=== PATIENT | male | born 1950 | race Hispanic/Latino ===

== ENCOUNTER 2018-09-19 17:20 | Emergency (ER) | payer MEDICARE ==
[~2018-09-19 17:20] MED LIST: CETI10CA5 PO; CLOP75TA14 PO; DUTA.5 PO; LEVO75 PO; METO-391 PO; ROSU10TA PO; TAMS-1 PO
[2018-09-19 17:56] LABS: BASOPHILS % (AUTO) 0.2 % (0.0-5.0); EOSINOPHILS % (AUTO) 0.2 % (0.0-8.0); HEMATOCRIT 48.1 % (42-54); LYMPHOCYTES % (AUTO) 4.9 % (21.0-51.0); MEAN CORPUSCULAR HEMOGLOBIN 29.9 pg (27.0-33.0); MEAN CORPUSCULAR HGB CONC 33.8 g/dL (32.0-36.0); MEAN CORPUSCULAR VOLUME 88.5 fL (79-99); MONOCYTES % (AUTO) 4.4 % (3.0-13.0); NEUTROPHILS % (AUTO) 90.3 % (40.0-77.0); NUCLEATED RED BLOOD CELLS 0.1 % (0.0-0.19); PLATELET COUNT (AUTO) 252 K/uL (130-400); RED BLOOD CELL COUNT(AUTO) 5.44 MIL/uL (4.50-6.20); RED CELL DISTRIBUTION WIDTH 13.5 % (11.0-15.5)
[2018-09-19] MEDS ORDERED: ONDANSETRON HCL 4 MG/2 ML VIAL ONE (18:07)
[2018-09-19] MEDS ORDERED: SODIUM CHLORIDE 0.9% 1000ML 1,000 ML IV ONE (18:07)
[2018-09-19 18:08] LABS: CREATININE 1.1 mg/dL (0.5-1.5); POTASSIUM 3.5 mmol/L (3.5-5.1)
[2018-09-19] MEDS ORDERED: MORPHINE SULFATE 2 MG/ML 1ML SYG ONE (18:08)
[2018-09-19 18:12] LABS: ALBUMIN 3.9 g/dL (3.5-5.0); BILIRUBIN,TOTAL 1.2 mg/dL (0.2-1.0); TOTAL PROTEIN, SERUM 7.4 g/dL (6.0-8.3)
[2018-09-19] MEDS ORDERED: IOHEXOL-350 75 ML VIAL IV ONE (18:40)
[2018-09-19] MEDS ORDERED: LEVOFLOXACIN 500 MG TABLET ONE (20:34)
== END 2018-09-19 20:47 | disposition home or self-care (01) ==
LOC: EDH 17:20
DX: K52.9 Noninfective gastroenteritis and colitis, unspecified (principal); E78.5 Hyperlipidemia, unspecified; Z88.6 Allergy status to analgesic agent; Z95.1 Presence of aortocoronary bypass graft
CPT/HCPCS: 36415; 74177; 80053; 83690; 85025; 93005; 96361; 96374; 99285; J2405; J7030; Q9967

== ENCOUNTER 2019-02-10 05:52 | Day surgery (SDC) | payer MEDICARE ==
[2019-02-08 16:00] VITALS: BP 128/75
[2019-02-08 16:26] LABS: BASOPHILS % (AUTO) 0.5 % (0.0-5.0); EOSINOPHILS % (AUTO) 4.3 % (0.0-8.0); HEMATOCRIT 49.1 % (42-54); LYMPHOCYTES % (AUTO) 21.5 % (21.0-51.0); MEAN CORPUSCULAR HEMOGLOBIN 30.3 pg (27.0-33.0); MEAN CORPUSCULAR HGB CONC 33.9 g/dL (32.0-36.0); MEAN CORPUSCULAR VOLUME 89.3 fL (79-99); MONOCYTES % (AUTO) 9.1 % (3.0-13.0); NEUTROPHILS % (AUTO) 64.6 % (40.0-77.0); PLATELET COUNT (AUTO) 245 K/uL (130-400); RED CELL DISTRIBUTION WIDTH 13.6 % (11.0-15.5); WHITE BLOOD COUNT (AUTO) 7.3 K/uL (4.8-10.8)
[2019-02-08 16:29] LABS: APPEARANCE,URINE Clear (CLEAR); BILIRUBIN,URINE Negative (NEGATIVE); COLOR,URINE Yellow (YELLOW); GLUCOSE, URINE (UA) Negative (NEGATIVE); KETONES,URINE Trace mg/dL (NEGATIVE); LEUKOCYTE ESTERASE ,URINE Negative (NEGATIVE); NITRATE,URINE Negative (NEGATIVE); OCCULT BLOOD,URINE Trace (NEGATIVE); PROTEIN,URINE Negative (NEGATIVE); UROBILINOGEN,URINE 0.2 mg/dL (0.2-1.0)
[2019-02-08 16:42] LABS: CREATININE 1.1 mg/dL (0.5-1.5)
[2019-02-08 16:44] LABS: INR 0.92 (0.85-1.15); PARTIAL THROMBOPLASTIN TIME 28.6 SEC (26.3-35.5); PROTHROMBIN TIME 9.7 SEC (9.6-11.6)
[2019-02-08 17:03] LABS: BACTERIA,URINE Rare /HPF (None Seen); RBC,URINE None Seen /HPF (0-1); SQUAMOUS EPITHELIAL CELL,UR 0-2 /HPF (0-2); WBC,URINE 0-1 /HPF (0-1)
[2019-02-10] VITALS (9 sets, daily range): BP systolic 117–153; BP diastolic 69–86
[~2019-02-10] VITALS: Ht 168.9 cm; Wt 92.0 kg
[~2019-02-10 05:52] MED LIST changes: +CHOL500050 PO; -DUTA.5 PO; +RANO500T3 PO; +TROS60CA4 PO
[2019-02-10] MEDS ORDERED: SODIUM CHLORIDE 0.9% 1000ML 1,000 ML IV ONE (06:15)
[2019-02-10] MEDS ORDERED: SODIUM CHLORIDE 0.9% 500ML 500 ML IV SCH (07:15)
--- NOTE | 2019-02-10 08:01 | NUR ---
ASSESSMENT PT HERE FOR PROCEDURE. DENIES ANY COMPLAINTS AT THIS TIME. AT BEDSIDE. SEVERAL SMALL ROUND BROWN SPOTS NOTED ON LOWER LEGS. STATES THAT HE HAS " ALOT OF CHIGGER BITES".
[2019-02-10] MEDS ORDERED: IOHEXOL 350 MG/ML 100ML INFUS..BTL IV ONE (09:19)
[2019-02-10] MEDS ORDERED: IOHEXOL-350 50ML VIAL IV ONE ×2 (09:19→10:10)
[2019-02-10] MEDS ORDERED: LIDOCAINE HCL 2% 20ML ONE (09:19)
[2019-02-10] MEDS ORDERED: BIVALIRUDIN 250 MG/VIAL IV ONE (09:20)
--- NOTE | 2019-02-10 09:30 | NUR ---
PROCEDURE PT TAKEN TO PROCEDURE VIA BED BY Jake CAVANAUGH RN. PT DENIES ANY COMPLAINTS AT THIS TIME.
[2019-02-10] MEDS ORDERED: NITROGLYCERIN 5 MG/ML 10 ML VIAL IV ONE (09:43)
[2019-02-10] MEDS ORDERED: MIDAZOLAM HCL 1 MG/ML 2ML VIAL ONE (09:46)
[2019-02-10] MEDS ORDERED: FENTANYL CITRATE PF 50 MCG/1 ML 2ML VIAL ONE (09:46)
[2019-02-10] MEDS ORDERED: SODIUM CHLORIDE 0.9% 1000ML 1,000 ML IV SCH (10:29)
[2019-02-10] MEDS ORDERED: ACETAMINOPHEN-CODEINE 300/30MG TAB PO PRN ×2 (10:30→14:30)
--- NOTE | 2019-02-10 10:45 | NUR ---
ASSESSMENT RECEIVED PT FROM SHIPPING SUPERVISOR PERSONNEL Manjula QUINN RN. PT LYING IN BED. INSTRUCTED ON IMPORTANCE OF KEEPING RIGHT LEG STRAIGHT AND NOT LIFTING HEAD UP OFF OF BED. BOTH PTS AND PT VERBALIZED UNDERSTANDING.
[2019-02-10] MEDS ORDERED: ASPIRIN 81MG TAB.CHEW ONE (12:17)
--- NOTE | 2019-02-10 13:55 | NUR ---
DISCHARGE ORAL AND WRITTEN DISCHARGE INSTRUCTION GIVEN TO PT AND PTS . SITE TO RIGHT GROIN SOFT TO TOUCH. NO BLEEDING, OOZING NOTED TO SITE. INSTRUCTED ON IMPORTANCE OF FOLLOWING INSTRUCTIONS GIVEN BY DR. AU. BOTH VERBALIZED UNDERSTANDING.
== END 2019-02-10 14:26 | disposition home or self-care (01) ==
LOC: DAH 05:52
PROVIDERS: ATTEND Internal Medicine Cardiovascular Disease
DX: I25.708 Atherosclerosis of coronary artery bypass graft(s), unspecified, with other forms of angina pectoris (principal); I10 Essential (primary) hypertension; I87.2 Venous insufficiency (chronic) (peripheral); I25.2 Old myocardial infarction; Z82.49 Family history of ischemic heart disease and other diseases of the circulatory system; Z79.899 Other long term (current) drug therapy; Z79.01 Long term (current) use of anticoagulants; Z98.890 Other specified postprocedural states; N40.0 Benign prostatic hyperplasia without lower urinary tract symptoms; K21.9 Gastro-esophageal reflux disease without esophagitis
CPT/HCPCS: 36415; 71045; 80048; 81001; 85025; 85610; 85730; 93005; 93459; A4606; C1760 ×2; C1894 ×2; J1644; J2250; J3490 ×2; J7030; Q9965; Q9967 ×3; 99156; 99157; J0583; J3010

== ENCOUNTER 2019-04-09 00:29 | Observation (INO) | payer MEDICARE ==
[2019-04-09] VITALS (16 sets, daily range): BP systolic 106–153; BP diastolic 57–96
[~2019-04-09] VITALS: Ht 170.2 cm; Wt 90.0 kg
[~2019-04-09 00:29] MED LIST changes: +ASPIRIN 325MG EC TAB 325 MG TABLET.DR PO SCH; +ENOXAPARIN SODIUM 40 MG/0.4 ML SYRINGE SQ SCH; +NITROGLYCERIN 1GM/1 INCH PACKET TD SCH; -ROSU10TA PO; +ROSU10TA22 PO
[2019-04-09 01:05] LABS: BASOPHILS % (AUTO) 0.5 % (0.0-5.0); EOSINOPHILS % (AUTO) 4.1 % (0.0-8.0); MEAN CORPUSCULAR HEMOGLOBIN 30.3 pg (27.0-33.0); MEAN CORPUSCULAR HGB CONC 34.5 g/dL (32.0-36.0); MONOCYTES % (AUTO) 8.4 % (3.0-13.0); PLATELET COUNT (AUTO) 215 K/uL (130-400); RED BLOOD CELL COUNT(AUTO) 4.89 MIL/uL (4.50-6.20); RED CELL DISTRIBUTION WIDTH 13.6 % (11.0-15.5); WHITE BLOOD COUNT (AUTO) 9.1 K/uL (4.8-10.8)
[2019-04-09] MEDS ORDERED: ASPIRIN 325 MG TABLET ONE (01:12)
[2019-04-09 01:14] LABS: POTASSIUM 4.5 mmol/L (3.5-5.1)
[2019-04-09 01:18] LABS: ALBUMIN 3.6 g/dL (3.5-5.0); BILIRUBIN,TOTAL 0.6 mg/dL (0.2-1.0); TOTAL PROTEIN, SERUM 6.7 g/dL (6.0-8.3)
[2019-04-09 01:47] LABS: APPEARANCE,URINE Clear (CLEAR); BILIRUBIN,URINE Negative (NEGATIVE); COLOR,URINE Yellow (YELLOW); GLUCOSE, URINE (UA) Negative (NEGATIVE); KETONES,URINE Negative (NEGATIVE); LEUKOCYTE ESTERASE ,URINE Negative (NEGATIVE); NITRATE,URINE Negative (NEGATIVE); OCCULT BLOOD,URINE Negative (NEGATIVE); PH,URINE 7.5 (5.0-8.0); PROTEIN,URINE Negative (NEGATIVE)
--- NOTE | 2019-04-09 09:29 | NUR ---
[facility] [phone]. Pt is retired, independent, uses no DME or in home care services. Sees Dr Marrufo and uses [facility] or [facility] for rx. Pt denies dc needs and will dc home. CM to follow and assist as needed Addendum: 04/09/19 at 0931 by CHAPIS VELAZQUEZ Amended: Links added.
[2019-04-09 10:49] LABS: CREATINE KINASE, TOTAL 98 U/L (21-232); MYOGLOBIN 71 ng/mL (10-92); TROPONIN I < 0.04 ng/mL (0.00-0.06)
--- NOTE | 2019-04-09 13:25 | NUR ---
RECEIVED PATIENT FROM ER, PENDING EGD BY DR. VALDEZ. REPORTED BY JEFF BOLAND, PATRICIA GUAMAN HAS ALREADY SEEN PATIENT IN ED. ORIENTED PATIENT TO ROOM. FULL ASSESSMENT DONE. CALL LIGHT WITHIN REACH. INSTRUCTED TO CALL FOR ASSISTANCE. PATIENT WILL BE KEPT NPO FOR EGD.
--- NOTE | 2019-04-09 13:40 | NUR ---
CALLED [id number] AND SPOKE WITH ANTOINETTE. SHE SAID THAT GI IS AWARE THAT PATIENT IS SCHEDULED FOR EGD WITH DR. VALDEZ TODAY.
[2019-04-09] MEDS ORDERED: METO50TA9 PO (14:04)
[2019-04-09] MEDS ORDERED: PANT40TA25 PO (14:04)
[2019-04-09] MEDS ORDERED: LIDOCAINE HCL 1% 20 ML VIAL ONE (15:20)
[2019-04-09] MEDS ORDERED: PROPOFOL 10 MG/ML 20ML VIAL IV ONE (15:20)
[2019-04-09] MEDS ORDERED: ATORVASTATIN CALCIUM 20 MG TABLET PO SCH (21:00)
[2019-04-09] MEDS: NITROGLYCERIN 1GM/1 INCH PACKET TD SCH (21:20)
[2019-04-09] MEDS: METOPROLOL TARTRATE 25 MG TAB PO SCH (21:21)
[2019-04-09] MEDS: ENOXAPARIN SODIUM 40 MG/0.4 ML SYRINGE SQ SCH (21:21)
[2019-04-09] MEDS: PANTOPRAZOLE SODIUM 40 MG TABLET.DR PO SCH (21:22)
--- NOTE | 2019-04-09 22:00 | NUR ---
PT HAS BEEN STABLE. AAO3. PERRLA. APPLIED NITRO PATCH TO LEFT CALF, AND ALSO LOVENOX. VERIFIED WITH PHARMACY MEDICATION ORDERS. STATED WERE ORDERED OUTPATIENT ORDERS. PT IV PATENT. ABLE TO STATE CONCERNS. PT NO DISTRESS NOTED.
[2019-04-10 00:50] VITALS: BP 112/88
[2019-04-10] MEDS: NITROGLYCERIN 1GM/1 INCH PACKET TD SCH ×2 (03:24→09:00)
[2019-04-10 04:00] VITALS: BP 105/65
[2019-04-10] MEDS ORDERED: ACETAMINOPHEN 325 MG TAB ONE (06:14)
[2019-04-10] MEDS: ENOXAPARIN SODIUM 40 MG/0.4 ML SYRINGE SQ SCH (07:01)
[2019-04-10 07:30] VITALS: BP 129/60
[2019-04-10] MEDS ORDERED: ASPIRIN 325 MG TABLET PO SCH (09:00)
[2019-04-10] MEDS ORDERED: RANOLAZINE 500 MG TAB.SR.12H PO SCH (09:00)
[2019-04-10] MEDS: PANTOPRAZOLE SODIUM 40 MG TABLET.DR PO SCH (10:22)
[2019-04-10] MEDS: METOPROLOL TARTRATE 25 MG TAB PO SCH (10:22)
--- NOTE | 2019-04-10 11:00 | NUR ---
DISCHARGE INSTRUCTIONS GIVEN TO PATIENT AND AT BEDSIDE. TEACH BACK METHOD USED TO EDUCATE PATIENT ON CHANGE IN MEDICATION: PROTONIX 40MG PO BID INSTEAD OF DAILY, PROPER DIET: BLAND/LOW FAT/HEART HEALTHY, WHEN TO CALL MD, AND F/U APPOINTMENTS. PIV REMOVED. TIP WAS INTACT. TELE MONITOR REMOVED AND RETURNED. ALL BELONGINGS WERE PACKED.
== END 2019-04-10 11:00 | disposition home or self-care (01) ==
LOC: EDH 00:29 → EDHIP 04:28 → INTOOBSV 04:28 → OBSVTOIN 04:28 → 2AH 12:51
PROVIDERS: ADMIT Family Medicine; ATTEND Family Medicine
DX: K22.10 Ulcer of esophagus without bleeding (principal); K29.00 Acute gastritis without bleeding; R07.2 Precordial pain; K44.9 Diaphragmatic hernia without obstruction or gangrene; A41.9 Sepsis, unspecified organism; E11.9 Type 2 diabetes mellitus without complications; E66.9 Obesity, unspecified; E78.5 Hyperlipidemia, unspecified; F45.8 Other somatoform disorders; I10 Essential (primary) hypertension; I25.2 Old myocardial infarction; I25.10 Atherosclerotic heart disease of native coronary artery without angina pectoris; K21.9 Gastro-esophageal reflux disease without esophagitis; N40.0 Benign prostatic hyperplasia without lower urinary tract symptoms; N52.9 Male erectile dysfunction, unspecified; Z82.49 Family history of ischemic heart disease and other diseases of the circulatory system; Z90.49 Acquired absence of other specified parts of digestive tract; Z95.1 Presence of aortocoronary bypass graft; Z79.899 Other long term (current) drug therapy
CPT/HCPCS: 36415; 43239; 71045; 80053; 81003; 82150; 82550 ×2; 83690; 83874; 84484 ×3; 85025; 88305; 88342; 93005 ×3; 96372; 99284; G0378 ×27; J1650; J2704

== ENCOUNTER → 2020-05-23 | Outpatient (CLI) | payer MEDICARE ==
[~2020-05-23] MED LIST changes: -ASPIRIN 325MG EC TAB 325 MG TABLET.DR PO SCH; -CETI10CA5 PO; -ENOXAPARIN SODIUM 40 MG/0.4 ML SYRINGE SQ SCH; +METO50TA9 PO; -NITROGLYCERIN 1GM/1 INCH PACKET TD SCH; -TROS60CA4 PO
== END | disposition home or self-care (01) ==
LOC: SHCH 14:07
PROVIDERS: ATTEND Internal Medicine Cardiovascular Disease
DX: I87.2 Venous insufficiency (chronic) (peripheral) (principal)
CPT/HCPCS: 93970

== ENCOUNTER 2022-02-27 22:03 | Emergency (ER) | payer MEDICARE ==
[~2022-02-27] VITALS: Ht 170.2 cm; Wt 89.8 kg
[2022-02-28 00:27] LABS: BASOPHILS % (AUTO) 0.5 % (0.0-5.0); EOSINOPHILS % (AUTO) 2.9 % (0.0-8.0); HEMATOCRIT 41.4 % (42-54); LYMPHOCYTES % (AUTO) 24.8 % (21.0-51.0); MEAN CORPUSCULAR HEMOGLOBIN 30.3 pg (27.0-33.0); MEAN CORPUSCULAR HGB CONC 34.3 g/dL (32.0-36.0); MEAN CORPUSCULAR VOLUME 88.5 fL (79-99); MONOCYTES % (AUTO) 10.9 % (3.0-13.0); NEUTROPHILS % (AUTO) 60.4 % (40.0-77.0); PLATELET COUNT (AUTO) 164 K/uL (130-400); RED BLOOD CELL COUNT(AUTO) 4.68 MIL/uL (4.50-6.20); RED CELL DISTRIBUTION WIDTH 13.7 % (11.0-15.5); WHITE BLOOD COUNT (AUTO) 6.6 K/uL (4.8-10.8)
[2022-02-28 00:30] LABS: CREATININE 0.8 mg/dL (0.5-1.5); POTASSIUM 3.7 mmol/L (3.5-5.1)
[2022-02-28 00:35] LABS: ALBUMIN 3.3 g/dL (3.5-5.0); BILIRUBIN,TOTAL 0.7 mg/dL (0.2-1.0); MAGNESIUM 1.9 mg/dL (1.80-2.40); TOTAL PROTEIN, SERUM 6.1 g/dL (6.0-8.3)
[2022-02-28 00:42] LABS: B-TYPE NATRIURETIC PEPTIDE 8 pg/mL (0-100)
[2022-02-28 01:46] VITALS: BP 105/58
== END 2022-02-28 01:48 | disposition home or self-care (01) ==
LOC: EDH 22:03
DX: I10 Essential (primary) hypertension (principal); H11.32 Conjunctival hemorrhage, left eye; I25.10 Atherosclerotic heart disease of native coronary artery without angina pectoris; Z88.5 Allergy status to narcotic agent; Z95.1 Presence of aortocoronary bypass graft
CPT/HCPCS: 36415; 71045; 80053; 82550; 83735; 83880; 84484; 85025; 93005

== ENCOUNTER → 2022-11-06 | Outpatient (CLI) | payer OTHER ==
[~2022-11-06] VITALS: Ht 170.2 cm; Wt 90.6 kg
[~2022-11-06] MED LIST changes: +BENZ-39 PO; +CEFAZOLIN SODIUM 2 GM VIAL IVPB SCH; +CLOP-31 PO; -CLOP75TA14 PO; +IPRATROPIUM/ALBUTEROL SULFATE 3 ML SOLUTION IH ONE; +LACTATED RINGERS 1000ML 1,000 ML IV ONE; +OMEP40CA21 PO; +PRED10TA3 PO; +ROSU20TA31 PO; +TERB250T89 PO; +TROS60CA4 PO
[2022-11-07 09:45] VITALS: BP 137/73
[2022-11-08 07:15] VITALS: BP 132/64
== END | disposition home or self-care (01) ==
LOC: DAH 10:00 → EDSTATUS 13:00 → DAH 11-08 07:00
PROVIDERS: ATTEND Student in an Organized Health Care Education/Training Program
DX: Z01.818 Encounter for other preprocedural examination (principal); M19.011 Primary osteoarthritis, right shoulder; M75.111 Incomplete rotator cuff tear or rupture of right shoulder, not specified as traumatic; G89.29 Other chronic pain; M75.21 Bicipital tendinitis, right shoulder; M75.41 Impingement syndrome of right shoulder; K21.9 Gastro-esophageal reflux disease without esophagitis; I25.2 Old myocardial infarction; Z88.5 Allergy status to narcotic agent; Z79.899 Other long term (current) drug therapy; Z20.822 Contact with and (suspected) exposure to COVID-19
CPT/HCPCS: 36415; 84134; 86140; 87426

== ENCOUNTER 2023-03-01 19:56 | Emergency (ER) | payer OTHER ==
[~2023-03-01] VITALS: Ht 170.2 cm; Wt 87.1 kg
[~2023-03-01 19:56] MED LIST changes: -CEFAZOLIN SODIUM 2 GM VIAL IVPB SCH; -CHOL500050 PO; -IPRATROPIUM/ALBUTEROL SULFATE 3 ML SOLUTION IH ONE; -LACTATED RINGERS 1000ML 1,000 ML IV ONE; -METO-391 PO; -ROSU10TA22 PO
[2023-03-01 20:29] LABS: BASOPHILS % (AUTO) 0.3 % (0.0-5.0); EOSINOPHILS % (AUTO) 2.7 % (0.0-8.0); HEMATOCRIT 48.5 % (42-54); LYMPHOCYTES % (AUTO) 26.2 % (21.0-51.0); MEAN CORPUSCULAR HEMOGLOBIN 28.1 pg (27.0-33.0); MEAN CORPUSCULAR HGB CONC 34.2 g/dL (32.0-36.0); MEAN CORPUSCULAR VOLUME 82.1 fL (79-99); MONOCYTES % (AUTO) 10.6 % (3.0-13.0); NEUTROPHILS % (AUTO) 59.8 % (40.0-77.0); PLATELET COUNT (AUTO) 209 K/uL (130-400); RED BLOOD CELL COUNT(AUTO) 5.91 MIL/uL (4.50-6.20); RED CELL DISTRIBUTION WIDTH 14.4 % (11.0-15.5)
[2023-03-01 20:42] LABS: CREATININE 1.6 mg/dL (0.5-1.5); POTASSIUM 4.1 mmol/L (3.5-5.1)
[2023-03-01 20:44] LABS: INR 0.94 (0.85-1.15); PROTHROMBIN TIME 10.3 SEC (9.6-11.6)
[2023-03-01 20:46] LABS: PARTIAL THROMBOPLASTIN TIME 28.4 SEC (26.3-35.5)
[2023-03-01 20:47] LABS: ALBUMIN 3.7 g/dL (3.5-5.0); TOTAL PROTEIN, SERUM 6.8 g/dL (6.0-8.3)
[2023-03-01 21:05] LABS: B-TYPE NATRIURETIC PEPTIDE 22 pg/mL (0-100)
[2023-03-02 00:33] VITALS: BP 130/77
== END 2023-03-02 01:42 | disposition home or self-care (01) ==
LOC: EDH 19:56
DX: R07.89 Other chest pain (principal); N28.9 Disorder of kidney and ureter, unspecified; I25.2 Old myocardial infarction; E78.00 Pure hypercholesterolemia, unspecified; I10 Essential (primary) hypertension; Z79.52 Long term (current) use of systemic steroids; Z88.5 Allergy status to narcotic agent; Z90.49 Acquired absence of other specified parts of digestive tract; Z95.1 Presence of aortocoronary bypass graft
CPT/HCPCS: 36415; 71045; 80053; 83880; 84484; 85025; 85610; 85730; 93005; 93971

== ENCOUNTER 2023-08-08 07:14 | Day surgery (SDC) | payer OTHER ==
[2023-08-06 09:21] LABS: BASOPHILS # (AUTO) 0.03 K/uL (0.00-0.20); BASOPHILS % (AUTO) 0.5 % (0.0-5.0); EOSINOPHILS % (AUTO) 3.1 % (0.0-8.0); HEMATOCRIT 45.4 % (42-54); IMMATURE GRANULOCYTE ABSOLUTE 0.02 K/uL (0-1); LYMPHOCYTES # (AUTO) 1.5 K/uL (1.0-4.8); LYMPHOCYTES % (AUTO) 22.8 % (21.0-51.0); MEAN CORPUSCULAR HEMOGLOBIN 30.4 pg (27.0-33.0); MEAN CORPUSCULAR HGB CONC 33.7 g/dL (32.0-36.0); MEAN CORPUSCULAR VOLUME 90.1 fL (79-99); MONOCYTES # (AUTO) 0.7 K/uL (0.1-1.0); MONOCYTES % (AUTO) 10.2 % (3.0-13.0); NEUTROPHILS # (AUTO) 4.1 K/uL (1.8-7.7); NEUTROPHILS % (AUTO) 63.1 % (40.0-77.0); PLATELET COUNT (AUTO) 208 K/uL (130-400); RED BLOOD CELL COUNT(AUTO) 5.04 MIL/uL (4.50-6.20); RED CELL DISTRIBUTION WIDTH 12.7 % (11.0-15.5); WHITE BLOOD COUNT (AUTO) 6.5 K/uL (4.8-10.8)
[2023-08-06 09:24] LABS: ALBUMIN 3.8 g/dL (3.5-5.0); CARBON DIOXIDE 31 mmol/L (21-32); CHLORIDE 103 mmol/L (101-111); CRP QUANTITATIVE < 2.00 mg/L (0.00-9.0); GLOMERULAR FILTR. RATE CALC 79 mL/min (>90); GLUCOSE,RANDOM 116 mg/dL (70-105); POTASSIUM 4.7 mmol/L (3.5-5.1); SODIUM SERUM 141 mmol/L (136-145); UREA NITROGEN, BLOOD 13 mg/dL (7-18)
[2023-08-06 09:29] VITALS: BP 133/71; PULSE 61; RESP 12
[~2023-08-08] VITALS: Ht 170.2 cm; Wt 88.9 kg
[2023-08-08] VITALS (16 sets, daily range): BP systolic 102–132; BP diastolic 62–81; PULSE 57–71; RESP 14–23
[~2023-08-08 07:14] MED LIST changes: -BENZ-39 PO; +CHOL200059 PO; +FINA5TAB41 PO; +FLUT16H NASAL; +OLOP2.5D16 OP; -OMEP40CA21 PO; -PRED10TA3 PO; -ROSU20TA31 PO; +ROSU40TA21 PO; -TERB250T89 PO; -TROS60CA4 PO
[2023-08-08] MEDS ORDERED: CEFAZOLIN SODIUM 2 GM VIAL ONE (08:21)
[2023-08-08] MEDS ORDERED: LACTATED RINGERS 1000ML 1,000 ML IV ONE (08:21)
[2023-08-08] MEDS ORDERED: ROPIVACAINE 0.5% 5MG/ML 30ML IJ ONE (11:48)
[2023-08-08] MEDS ORDERED: LIDOCAINE PF 100MG/5ML (2%) SYRINGE 5ML ONE (11:57)
[2023-08-08] MEDS ORDERED: MIDAZOLAM HCL 1 MG/ML 2ML VIAL ONE (11:58)
[2023-08-08] MEDS ORDERED: SUCCINYLCHOLINE 200MG/10ML SYR ONE (11:58)
[2023-08-08] MEDS ORDERED: ROCURONIUM 10MG/1ML SYR 10 MG/ML ML ONE ×2 (11:58→14:31)
[2023-08-08] MEDS ORDERED: PROPOFOL 10 MG/ML 20ML VIAL IV ONE (11:58)
[2023-08-08] MEDS ORDERED: FENTANYL CITRATE PF 50 MCG/1 ML 2ML VIAL ONE (12:00)
[2023-08-08] MEDS ORDERED: EPHEDRINE SULFATE 50 MG/ML AMPULE ONE ×2 (12:21→13:37)
[2023-08-08] MEDS ORDERED: EPINEPHRINE PF 1MG (1:1,000) 1 MG/ML AMP MISC ONE (13:11)
[2023-08-08] MEDS ORDERED: PHENYLEPHRINE HCL 10 MG/ML 1ML VIAL IV ONE (13:18)
[2023-08-08] MEDS ORDERED: ONDANSETRON 4MG INJ ONE (14:31)
[2023-08-08] MEDS ORDERED: NEOSTIGMINE 5MG/5ML SYR IV ONE (15:03)
[2023-08-08] MEDS ORDERED: HYDR-4060 PO (15:24)
[2023-08-08] MEDS ORDERED: CYCL5TAB PO (15:24)
== END 2023-08-08 17:15 | disposition home or self-care (01) ==
LOC: DAH 07:14
PROVIDERS: ATTEND Student in an Organized Health Care Education/Training Program
DX: M75.121 Complete rotator cuff tear or rupture of right shoulder, not specified as traumatic (principal); M19.011 Primary osteoarthritis, right shoulder; M94.211 Chondromalacia, right shoulder; M75.21 Bicipital tendinitis, right shoulder; M75.41 Impingement syndrome of right shoulder; I10 Essential (primary) hypertension; K21.9 Gastro-esophageal reflux disease without esophagitis; E03.9 Hypothyroidism, unspecified; E78.5 Hyperlipidemia, unspecified; I25.2 Old myocardial infarction; Z95.5 Presence of coronary angioplasty implant and graft; Z90.49 Acquired absence of other specified parts of digestive tract; Z98.890 Other specified postprocedural states; Z82.49 Family history of ischemic heart disease and other diseases of the circulatory system
CPT/HCPCS: 82040; 80048; 85025; 84134; 86140; 36415; 29827; 29824; 29826; 64415; A4663; J7030; A4452; J7120; J3010; J0330; J2710; J2001; J0171; J3490 ×2; J2250; J2704; J2405; J2795; J2371; J0690; A6223; A4649; C1713; A5120; A4215; A4223; A4222; A4221; A4600

== ENCOUNTER → 2024-08-30 | Outpatient (CLI) | payer OTHER ==
[~2024-08-30] MED LIST changes: +CYCL5TAB PO; +DICY20TA2 PO; +HYDR-4060 PO; +METR-172 PO; +ONDA-243 PO; -ROSU40TA21 PO; +ROSU40TA88 PO
== END | disposition home or self-care (01) ==
LOC: SHCH 07:52
PROVIDERS: ATTEND Internal Medicine Cardiovascular Disease
DX: I70.293 Other atherosclerosis of native arteries of extremities, bilateral legs (principal)
CPT/HCPCS: 93925

== ENCOUNTER 2025-08-27 08:38 | Emergency (ER) | payer OTHER, MEDICARE ==
[~2025-08-27] VITALS: Ht 170.2 cm; Wt 90.7 kg
[~2025-08-27 08:38] MED LIST changes: -CYCL5TAB PO; +CYCL5TAB3 PO
[2025-08-27 09:07] LABS: IMMATURE GRANULOCYTE ABSOLUTE 0.02 K/uL (0-1); NUCLEATED RED BLOOD CELLS 0.0 % (0.0-0.19); PLATELET COUNT (AUTO) 191 K/uL (130-400); RED BLOOD CELL COUNT(AUTO) 4.84 MIL/uL (4.50-6.20); RED CELL DISTRIBUTION WIDTH 13.2 % (11.0-15.5); WHITE BLOOD COUNT (AUTO) 5.3 K/uL (4.8-10.8)
[2025-08-27 09:14] LABS: CREATININE 0.9 mg/dL (0.5-1.3); GLOMERULAR FILTR. RATE CALC 89.0 mL/min (>90); GLUCOSE,RANDOM 120.0 mg/dL (70-105); SODIUM SERUM 137.0 mmol/L (136-145); UREA NITROGEN, BLOOD 14.0 mg/dL (7-18)
[2025-08-27] MEDS ORDERED: PRED5TAB PO (10:25)
--- NOTE | 2025-08-27 10:25 | ERN ---
General Chief Complaint: Eye Problems Stated Complaint: INFECTED LEFT EYE Time Seen by MD: 08:46 Source: patient History of Present Illness Initial Comments Patient is a 75-year-old male coming in to be evaluated for left eyelid swelling. Per patient he started using an antibiotic ointment prescribed by fuel pilot engineer at the DC. who states that that has happened yesterday he started noticing some swelling decided to come in for further evaluation. Allergies: Coded Allergies: morphine (Unverified Allergy, Unknown, RASH, 06/09/15) Home Meds Active Scripts Metronidazole (Metronidazole) 500 Mg Tablet, 500 MG PO TID for 5 Days, #15 TAB Prov:AURELIO WHATLEY ARCHIVIST 07/20/24 Ondansetron (Ondansetron Odt) 4 Mg Tab.rapdis, 4 MG PO Q6HPRN PRN for nausea, #16 TAB 0 Refills Prov:AURELIO WHATLEY ARCHIVIST 07/20/24 Dicyclomine HCl (Bentyl) 20 Mg Tab, 20 MG PO Q6HPRN PRN for Abdominal cramps, #30 TAB Prov:AURELIO WHATLEY ARCHIVIST 07/20/24 Cyclobenzaprine HCl (Cyclobenzaprine HCl) 5 Mg Tablet, 5 MG PO q8hprn PRN for pain/spasm for 10 Days, #30 TAB 0 Refills Prov:JENSEN MOORE MD 08/08/23 Hydrocodone/Acetaminophen (Hydrocodon-Acetaminophen 5-325) 1 Each Tablet, 1 EACH PO Q6HPRN PRN for PAIN for 7 Days, #28 TAB 0 Refills Prov:JENSEN MOORE MD 08/08/23 Reported Medications Fluticasone Propionate (Flonase Nasal [place]) 50 Mcg/[place], 1 SPRAY NASAL AD, SPRAY 08/06/23 Cholecalciferol (Vitamin D3) (Vitamin D3) 50 Mcg Tablet, 50 MCG PO AM, TAB 08/06/23 Olopatadine HCl (Olopatadine HCl) 2.5 Ml Drops, 1 DROP OP AD, DROP 08/06/23 Finasteride (Finasteride) 5 Mg Tablet, 5 MG PO AM, TAB 08/06/23 Rosuvastatin Calcium (Rosuvastatin Calcium) 40 Mg Tablet, 40 MG PO HS, TAB 08/06/23 Metoprolol Succinate (Toprol Xl) 50 Mg Tab.er.24h, 50 MG PO BID, TAB 04/09/19 Ranolazine (Ranexa) 500 Mg Tab.er.12h, 500 MG PO HS, TAB 02/08/19 Levothyroxine Sodium (Levothroid/Synthroid) 75 Mcg Tab, 75 MCG PO DAILY, TAB 05/03/16 Clopidogrel Bisulfate (Plavix) 75 Mg Tablet, 75 MG PO HS, TAB 06/08/15 Tamsulosin HCl (Flomax) 0.4 Mg/Cap Cap.er.24h, 0.4 MG PO DAILY, CAPSULE. 06/08/15 Past Medical History Past Medical History: Heart Disease, Hypertension Medical History Other: PROSTATE PROBLEMS Past Surgical History: Cholecystectomy, CABG Surgical History Other: LT ANKLE Social History Social History: Negative, Lives with family ROS Dictation CONSTITUTIONAL: No chills, no fever, no weakness, no diaphoresis, no malaise. HEAD/FACE: No signs of trauma. EENT: eye pain, no blurred vision, no tearing, no double vision, no ear pain, no ear discharge, no nose pain, no nasal congestion, no throat pain, no throat swelling, no mouth pain. RESPIRATORY: No cough, no orthopnea, no SOB, no stridor, no wheezing. CARDIOVASCULAR: No chest pain, no edema, no palpitations, no syncope. GASTROINTESTINAL/ABDOMINAL: No abdominal pain, no constipation, no diarrhea, no nausea, no vomiting. GENITOURINARY: No abnormal discharge, no dysuria, no frequent urination, no hematuria. No complaints of pain in the genitals. MUSCULOSKELETAL: No back pain, no gout, no joint pain, no joint swelling, no muscle pain, no muscle stiffness, no neck pain. INTEGUMENTARY: No change in color, no change in hair/nails, no dryness, no lesion, no lumps, no rash. NEUROLOGICAL/PSYCH: No anxiety, not depressed, no emotional problem, no headache, no numbness, no pre-existing deficit, no history of seizures, no tremors, no weakness. HEMATOLOGIC/LYMPHATIC: Not anemic, no history of blood clots, no apparent bleeding, no bruising, glands not swollen. All Systems Negative, Except as Noted. Physical Exam Physical Exam Dictation VITAL SIGNS: Reviewed. GENERAL APPEARANCE: Alert, oriented x3, no acute distress, obese. HEAD AND FACE: Non-traumatic. EYES: PERRL, pink conjunctivas, left upper eyelid swelling, anterior chamber clear. EARS: Pinnas intact and no signs of trauma or erythema. Ear canals clear and no discharge. TMs no erythema. NOSE: No discharge, no bleeding. OROPHARYNX: Mouth normal, teeth no caries, tongue pink. Pharynx clear, no erythema. Tonsils no exudates, no abscesses noted. Mucous membrane moist. NECK: Supple, non-tender, no thyromegaly, no masses, no JVD, no bruits. BREAST: Deferred. CHEST: No tenderness, no crepitus, no paradoxical movement, no retractions. LUNGS: Clear, well-ventilated, symmetric, no rales, no wheezing, no rhonchi, no stridor, good breath sounds bilaterally. HEART: Regular rate, regular rhythm, no murmur, no gallops. VASCULAR: No peripheral edema. ABDOMEN: Soft, positive bowel sounds, nondistended, no guarding, nontender, no rebound, no masses no hepatomegaly, no splenomegaly, no Keating's sign, no hernias. RECTAL: Deferred. GENITAL: Deferred. NEUROLOGICAL: Normal speech, gross motor function intact, gross sensory function intact. MUSCULOSKELETAL: Neck nontender, full range of motion, back nontender, full range of motion. EXTREMITIES: Nontender, full range of motion. SKIN: Color pink, dry, no turgor, no rash, no lacerations, no abrasions, no contusions. LYMPHATICS: Deferred. Results Laboratory and Microbiology Lab and Micro Result Laboratory Tests Test 08/27/25 09:04 White Blood Count 5.3 K/uL (4.8-10.8) Red Blood Count 4.84 MIL/uL (4.50-6.20) Hemoglobin 14.7 g/dL (14.0-18.0) Hematocrit 41.9 % (42-54) L Mean Corpuscular Volume 86.6 fL (79-99) Mean Corpuscular Hemoglobin 30.4 pg (27.0-33.0) Mean Corpuscular Hemoglobin Concent 35.1 g/dL (32.0-36.0) Red Cell Distribution Width 13.2 % (11.0-15.5) Platelet Count 191 K/uL (130-400) Mean Platelet Volume 8.8 fL (7.5-10.5) Immature Granulocyte % (Auto) 0.4 % (0-1) Neutrophils (%) (Auto) 64.1 % (40.0-77.0) Lymphocytes (%) (Auto) 20.3 % (21.0-51.0) L Monocytes (%) (Auto) 9.9 % (3.0-13.0) Eosinophils (%) (Auto) 4.7 % (0.0-8.0) Basophils (%) (Auto) 0.6 % (0.0-5.0) Neutrophils # (Auto) 3.4 K/uL (1.8-7.7) Lymphocytes # (Auto) 1.1 K/uL (1.0-4.8) Monocytes # (Auto) 0.5 K/uL (0.1-1.0) Eosinophils # (Auto) 0.25 K/uL (0.00-0.70) Basophils # (Auto) 0.03 K/uL (0.00-0.20) Absolute Immature Granulocyte (auto 0.02 K/uL (0-1) Nucleated Red Blood Cells 0.0 % (0.0-0.19) Sodium Level 137 mmol/L (136-145) Potassium Level 3.7 mmol/L (3.5-5.1) Chloride Level 102 mmol/L (101-111) Carbon Dioxide Level 28 mmol/L (21-32) Blood Urea Nitrogen 14 mg/dL (7-18) Creatinine 0.9 mg/dL (0.5-1.3) Glomerular Filtration Rate Calc 89 mL/min (>90) Random Glucose 120 mg/dL (70-105) H Total Calcium 8.8 mg/dL (8.5-10.1) Labs Reviewed?: Yes MDM MDM: Differential diagnosis: Eyelid swelling, eyelid allergic reaction Rationale: Tests considered and ordered secondary to shared decision making include: Previous outside records reviewed: Old ER visits. Risk of complication and/or morbidity or mortality of patient management: None Medications-Per medication reconciliation Need for hospitalization: Patient does not meet criteria for hospitalization. Need for emergency major/minor surgery: No Patient is a 75-year-old male coming in to be evaluated for left eyelid swelling. Upon evaluation patient did present with swelling steroids were given he states swelling decreased significantly. Patient will be discharged in stable condition with a diagnosis of allergic reaction. Did advised him not to take medication prescribed by the fuel pilot engineer anymore. ED Course Orders Procedure Category Date Status Time Cbc With Differential LAB 08/27/25 Complete 08:50 Basic Metabolic Panel LAB 08/27/25 Complete 08:50 Methylprednisolone PHA 08/27/25 Complete Succ 125mg (Solu-Medr 09:30 Dexamethasone 4mg/Ml PHA 08/27/25 Logged 1ml Vial (Dexametha 10:30 Current Medications Medications (Trade) Dose Ordered Sig/Marika Route PRN Reason Start Time Stop Time Status Last Admin Dose Admin Dexamethasone Sodium Phosphate (dexaMETHasone 4MG/ML 1ML VIAL) 4 mg ONCE ONCE IV 08/27/25 10:30 08/27/25 10:31 UNV Methylprednisolone Sodium Succinate (Solu-medROL 125MG) 125 mg ONCE ONCE IVP 08/27/25 09:30 08/27/25 09:31 DC 08/27/25 09:44 Vital Signs Date Time Temp Pulse Resp B/P (MAP) Pulse Ox O2 Delivery O2 Flow Rate FiO2 08/27/25 09:00 98.6 63 13 144/78 97 Room Air* 0 21 08/27/25 08:42 98.2 67 15 144/78 97 Room Air 0 DX & DISP Disposition: Discharge Departure Impression: Primary Impression: Allergic dermatitis eyelid Condition: Stable Scripts Prednisone (Prednisone) 5 Mg Tablet 1 TAB PO BID for 7 Days, #14 TAB 0 Refills Prov: MANSI GARCIA MD 08/27/25 Additional Instructions: FOLLOW-UP WITH PRIMARY CARE PROVIDER IN 1 TO 2 DAYS. TAKE MEDICATIONS DIRECTED HERE IN THE EMERGENCY ROOM. OKAY TO CONTINUE HOME MEDICATIONS UNLESS OTHERWISE DISCUSSED DURING YOUR VISIT IN THE EMERGENCY ROOM TODAY. RETURN TO Y OUR NEAREST EMERGENCY ROOM IF SYMPTOMS WORSEN OR IF THERE IS NO IMPROVEMENT. CALL 911 IF YOU NEED IMMEDIATE ASSISTANCE. TAKE TYLENOL [id number] NEEDED AND IF NO CONTRAINDICATIONS ARE PRESENT. INCREASE ORAL HYDRATION. A WOUND CULTURE OR URINE CULTURE WAS ORDERED HERE IN THE EMERGENCY ROOM DEPARTMENT PLEASE FOLLOW-UP WITH PRIMARY CARE PROVIDER AND ADVISE THEM TO GET REPORTS FROM OUR FACILITY. IF YOU HAD ANY CHATO WRAP/SPLINTS THAT WERE APPLIED HERE, PLEASE DO NOT REMOVE THEM UNTIL YOU SEE YOUR PRIMARY CARE OR SPECIALTY. Referrals: Referrals: SELF,REFERRAL (PCP) APPLE MEANS MD Time of Disposition: 10:24 MANSI GARCIA MD Aug 27, 2025 10:25
[2025-08-27 10:52] VITALS: BP 140/75; PULSE 65; RESP 16; TEMP 98.3; O2SAT 98
== END 2025-08-27 10:59 | disposition home or self-care (01) ==
LOC: EDH 08:38
DX: H01.116 Allergic dermatitis of left eye, unspecified eyelid (principal); I11.9 Hypertensive heart disease without heart failure; Z79.890 Hormone replacement therapy; Z79.899 Other long term (current) drug therapy; Z88.5 Allergy status to narcotic agent; Z90.49 Acquired absence of other specified parts of digestive tract; Z95.1 Presence of aortocoronary bypass graft
CPT/HCPCS: 99284; 96374; 96375; 80048; 85025; 36415; J1100; J2919